=== PATIENT | male | born 1990 | race Caucasian/White ===

== ENCOUNTER 2024-01-17 20:13 | Emergency (ER) | payer BC, SELFPAY ==
[2024-01-17 20:17] VITALS: BP 157/97; BMI 45.2
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
[2024-01-17 20:47] LABS: Glucose - Point of Care 93 mg/dl (70-99)
== END 2024-01-17 21:18 | disposition home or self-care (01) ==
LOC: EMR 20:13
PROVIDERS: EMERGENCY PHYSICIAN Student in an Organized Health Care Education/Training Program
DX: T65.93XA Toxic effect of unspecified substance, assault, initial encounter (principal)
CPT/HCPCS: 99283; 82962